=== PATIENT | female | born 1985 | race African-American/Black ===

== ENCOUNTER 2019-01-09 00:01 | Outpatient (CLI) | payer BC, MEDICAID ==
[2019-01-09] MEDS ORDERED: LACTATED RINGERS 500 ML IV ONE (00:26)
[2019-01-09] MEDS ORDERED: BRETHINE SUB-Q ONE (01:31)
[2019-01-09] MEDS ORDERED: BRETHINE ONE (01:33)
[2019-01-09 01:38] LABS: Bilirubin,Urine NEG (Negative); Blood,Urine NEG (Negative); Color,Urine Straw (Yellow); Mucus,Urine FEW /HPF; Protein,Urine <15 mg/dL mg/dL (Negative); RBC,Urine < 1.0 /HPF (0.0-6.0); Urobilinogen,Urine < 2.0 mg/dL (<2.0); WBC,Urine < 1.0 /HPF (0.0-6.0)
[2019-01-09 01:55] VITALS: BP 129/63
== END 2019-01-09 02:14 | disposition home or self-care (01) ==
LOC: TRG 00:01
PROVIDERS: ATTEND Obstetrics & Gynecology
DX: O62.9 Abnormality of forces of labor, unspecified (principal); Z3A.35 35 weeks gestation of pregnancy; Z90.49 Acquired absence of other specified parts of digestive tract
CPT/HCPCS: 59025; 81001; 96372; J3105; J7120; 96360

== ENCOUNTER 2019-01-17 21:39 | Outpatient (CLI) | payer BC, MEDICAID ==
[2019-01-17] MEDS ORDERED: LACTATED RINGERS 500 ML IV ONE (21:41)
[2019-01-17] MEDS ORDERED: LACTATED RINGERS 1,000 ML ONE (21:49)
[2019-01-17] MEDS ORDERED: TERBUTALINE 1 MG/1 ML INJ IVP ONE (22:02)
[2019-01-17] MEDS ORDERED: TERBUTALINE 1 MG/1 ML INJ ONE (22:06)
[2019-01-17 22:24] VITALS: BP 123/63
[2019-01-17] MEDS ORDERED: TERBUTALINE 1 MG/1 ML INJ SUB-Q ONE (22:29)
[2019-01-17 23:12] LABS: Bilirubin,Urine NEG (Negative); Blood,Urine NEG (Negative); Color,Urine Yellow (Yellow); Mucus,Urine FEW /HPF; Protein,Urine <15 mg/dL mg/dL (Negative); Urobilinogen,Urine < 2.0 mg/dL (<2.0); WBC,Urine < 1.0 /HPF (0.0-6.0)
== END 2019-01-18 00:02 | disposition home or self-care (01) ==
LOC: TRG 21:39
PROVIDERS: ATTEND Obstetrics & Gynecology
DX: O62.9 Abnormality of forces of labor, unspecified (principal); O24.410 Gestational diabetes mellitus in pregnancy, diet controlled; Z3A.36 36 weeks gestation of pregnancy; Z90.49 Acquired absence of other specified parts of digestive tract
CPT/HCPCS: 59025; 81001; 96372; 96374; J3105; 96360; J7120